=== PATIENT | male | born 1975 | race Caucasian/White ===

== ENCOUNTER 2017-06-12 23:03 | Emergency (ER) | payer MEDICAID, OTHER ==
--- NOTE | 2017-06-12 23:39 | EDM.PDOC ---
ED HPI GENERAL MEDICAL PROBLEM - General Chief Complaint: Respiratory Problem Stated Complaint: FLU SYMPTOMS Time Seen by Provider: 06/12/17 23:38 - History of Present Illness INITIAL COMMENTS - FREE TEXT/NARRATIVE: HISTORY AND PHYSICAL: History of present illness: Patient is 41-year-old male presents concern of cough chills body aches 1 day he denies shortness breath or chest pain denies abdominal pain Review of systems: As per history of present illness and below otherwise all systems reviewed and negative. Past medical history: As per history of present illness and as reviewed below otherwise noncontributory. Surgical history: As per history of present illness and as reviewed below otherwise noncontributory. Social history: No reported history of drug or alcohol abuse. Family history: As per history of present illness and as reviewed below otherwise noncontributory. Physical exam: HEENT: Atraumatic, normocephalic, pupils reactive, negative for conjunctival pallor or scleral icterus, mucous membranes moist, throat clear, neck supple, nontender, trachea midline. Lungs: Clear to auscultation, breath sounds equal bilaterally, chest nontender. Heart: S1S2, regular, negative for clicks, rubs, or JVD. Abdomen: Soft, nondistended, nontender. Negative for masses or hepatosplenomegaly. Negative for costovertebral tenderness. Pelvis: Stable nontender. Genitourinary: Deferred. Rectal: Deferred. Extremities: Atraumatic, negative for cords or calf pain. Neurovascular unremarkable. Neuro: Awake, alert, oriented. Cranial nerves II through XII unremarkable. Cerebellum unremarkable. Motor and sensory unremarkable throughout. Exam nonfocal. Diagnostics: Influenza screen Therapeutics: None Impression: #1 tracheobronchitis #2 rule out viral syndrome Definitive disposition and diagnosis as appropriate pending reevaluation and review of above. headache Pain Score (Numeric/FACES): 5 - Related Data Allergies Allergy/AdvReac Type Severity Reaction Status Date / Time No Known Allergies Allergy Verified 06/12/17 23:17 Home Meds: Home Meds . [No Known Home Meds] 06/12/17 [History] Past Medical History HEENT History: Reports: None Cardiovascular History: Reports: None Respiratory History: Reports: None Gastrointestinal History: Reports: None Genitourinary History: Reports: None Musculoskeletal History: Reports: None Neurological History: Reports: None Psychiatric History: Reports: None Endocrine/Metabolic History: Reports: None Hematologic History: Reports: None Immunologic History: Reports: None Oncologic (Cancer) History: Reports: None Dermatologic History: Reports: None - Infectious Disease History Infectious Disease History: Reports: None - Past Surgical History Musculoskeletal Surgical History: Reports: Amputation Social & Family History - Family History Family Medical History: Noncontributory - Tobacco Use Smoking Status *Q: Former Smoker Used Tobacco, but Quit: No - Caffeine Use Caffeine Use: Reports: Soda - Recreational Drug Use Recreational Drug Use: No ED ROS GENERAL - Review of Systems Review Of Systems: ROS reveals no pertinent complaints other than HPI. ED EXAM, GENERAL - Physical Exam Exam: See Below (See dictation) Course - Vital Signs Last Recorded V/S: Last Vital Signs Temp 36.1 C 06/12/17 23:17 Pulse 68 06/12/17 23:17 Resp 18 06/12/17 23:17 BP 135/77 06/12/17 23:17 Pulse Ox 98 06/12/17 23:17 - Orders/Labs/Meds Orders: Active Orders 24 hr Category Date Time Status STREP SCRN A RAPID W CULT CONF [RM] Stat Lab 06/12/17 23:29 Ordered Departure - Departure Time of Disposition: 23:41 Disposition: Home, Self-Care 01 Condition: Good Clinical Impression: Tracheobronchitis - Discharge Information Referrals: PCP,None [Primary Care Provider] - Forms: ED Department Discharge Additional Instructions: The following information is given to patients seen in the emergency department who are being discharged to home. This information is to outline your options for follow-up care. We provide all patients seen in our emergency department with a follow-up referral. The need for follow-up, as well as the timing and circumstances, are variable depending upon the specifics of your emergency department visit. If you don't have a primary care physician on staff, we will provide you with a referral. We always advise you to contact your personal physician following an emergency department visit to inform them of the circumstance of the visit and for follow-up with them and/or the need for any referrals to a consulting specialist. The emergency department will also refer you to a specialist when appropriate. This referral assures that you have the opportunity for followup care with a specialist. All of these measure are taken in an effort to provide you with optimal care, which includes your followup. Under all circumstances we always encourage you to contact your private physician who remains a resource for coordinating your care. When calling for followup care, please make the office aware that this follow-up is from your recent emergency room visit. If for any reason you are refused follow-up, please contact the [facility] emergency department at and asked to speak to the emergency department charge nurse. Augmentin and albuterol as prescribed follow-up private medical doctor as needed as discussed return as needed as discussed - My Orders Last 24 Hours: My Active Orders 06/12/17 23:29 STREP SCRN A RAPID W CULT CONF [RM] Stat - Assessment/Plan Last 24 Hours: My Active Orders 06/12/17 23:29 STREP SCRN A RAPID W CULT CONF [RM] Stat
== END 2017-06-13 00:07 | disposition home or self-care (01) ==
LOC: MW.ED 23:03
DX: J40 Bronchitis, not specified as acute or chronic (principal); Z87.891 Personal history of nicotine dependence
CPT/HCPCS: 87804; 87880; 99283

== ENCOUNTER 2018-11-02 20:35 | Emergency (ER) | payer MEDICAID ==
[2018-11-02] MEDS ORDERED: Sodium Chloride 0.9% 10 ML Syringe IV ONE (20:36)
[2018-11-02] MEDS ORDERED: Nitroglycerin 0.4 MG Tab.SL SL SCH (20:45)
[2018-11-02] MEDS ORDERED: Aspirin 81 MG Tab.Chew ONE (20:46)
[2018-11-02] MEDS ORDERED: Morphine 2 MG/ML Syringe IVPUSH ONE (20:48)
[2018-11-02] MEDS ORDERED: LORazepam 2 MG/ML SDV IVPUSH ONE (20:48)
[2018-11-02] MEDS ORDERED: Morphine 2 MG/ML Syringe ONE (20:48)
[2018-11-02] MEDS ORDERED: LORazepam 2 MG/ML SDV ONE (20:49)
[2018-11-02] MEDS ORDERED: Succinylcholine 200 MG/10 ML MDV IV ONE (20:54)
[2018-11-02] MEDS ORDERED: Aspirin 81 MG Tab.Chew PO ONE (21:03)
--- NOTE | 2018-11-02 21:12 | EDM.PDOC ---
ED HPI GENERAL MEDICAL PROBLEM - General Chief Complaint: Chest Pain Stated Complaint: COLD SWEAT Time Seen by Provider: 11/02/18 20:37 - History of Present Illness INITIAL COMMENTS - FREE TEXT/NARRATIVE: HISTORY AND PHYSICAL: History of present illness: Patient 43-year-old white male reports no past medical history patient and deny drug or alcohol abuse he comes in diaphoretic pale complaining of crushing chest pain in his becoming agitated quickly in his ER course was difficult to assess patient due to this agitation we did ultimately obtain an EKG that did not show any acute ST-T changes patient continued to become more agitated and altered and was intubated via rapid sequence intubation by myself he remained hemodynamically stable orogastric tube Nelson catheter was placed repeat EKG is pending as is chest x-ray Review of systems: As per history of present illness and below otherwise all systems reviewed and negative. Past medical history: As per history of present illness and as reviewed below otherwise noncontributory. Surgical history: As per history of present illness and as reviewed below otherwise noncontributory. Social history: No reported history of drug or alcohol abuse. Family history: As per history of present illness and as reviewed below otherwise noncontributory. Physical exam: HEENT: Atraumatic, normocephalic, pupils reactive, negative for conjunctival pallor or scleral icterus, mucous membranes moist, throat clear, neck supple, nontender, trachea midline. Patient appears pale and diaphoretic Lungs: Clear to auscultation, breath sounds equal bilaterally, chest nontender. Heart: S1S2, regular, negative for clicks, rubs, or JVD. Abdomen: Soft, nondistended, nontender. Negative for masses or hepatosplenomegaly. Negative for costovertebral tenderness. Pelvis: Stable nontender. Genitourinary: Deferred. Rectal: Deferred. Extremities: Atraumatic, negative for cords or calf pain. Neurovascular unremarkable. Neuro: Somnolent agitated moving all extremities not following commands consistently limited but grossly nonfocal exam Diagnostics: CBC CMP troponin PT/INR chest x-ray EKG UA urine drug screen EtOH ABG Therapeutics: Patient intubated with an 8-0 ET tube by myself via rapid sequence intubation color change entitle CO2 status post intubation verify placement OG tube Nelson catheter propofol drip Impression: #1 chest pain #2 altered mental status Definitive disposition and diagnosis as appropriate pending reevaluation and review of above. chest Pain Score (Numeric/FACES): 6 - Related Data Allergies Allergy/AdvReac Type Severity Reaction Status Date / Time No Known Allergies Allergy Verified 11/02/18 21:02 Home Meds: Home Meds . [No Known Home Meds] 06/12/17 [History] Past Medical History HEENT History: Reports: None Cardiovascular History: Reports: None Respiratory History: Reports: None Gastrointestinal History: Reports: None Genitourinary History: Reports: None Musculoskeletal History: Reports: None Neurological History: Reports: None Psychiatric History: Reports: None Endocrine/Metabolic History: Reports: None Hematologic History: Reports: None Immunologic History: Reports: None Oncologic (Cancer) History: Reports: None Dermatologic History: Reports: None - Infectious Disease History Infectious Disease History: Reports: None - Past Surgical History Musculoskeletal Surgical History: Reports: Amputation Social & Family History - Family History Family Medical History: Noncontributory - Tobacco Use Smoking Status *Q: Current Every Day Smoker Years of Tobacco use: 20 Packs/Tins Daily: 1 - Caffeine Use Caffeine Use: Reports: Soda - Recreational Drug Use Recreational Drug Use: No ED ROS GENERAL - Review of Systems Review Of Systems: ROS reveals no pertinent complaints other than HPI. ED EXAM, GENERAL - Physical Exam Exam: See Below (See dictation) Course - Vital Signs Last Recorded V/S: Last Vital Signs Temp 35.5 C 11/02/18 20:35 Pulse 98 11/02/18 20:35 Resp 24 H 11/02/18 20:35 BP 129/70 11/02/18 20:35 Pulse Ox 86 L 11/02/18 20:35 - Orders/Labs/Meds Orders: Active Orders 24 hr Category Date Time Status EKG Documentation Completion [RC] STAT Care 11/02/18 20:43 Active Chest 1V Frontal [CR] Stat Exams 11/02/18 20:44 Ordered COMPREHENSIVE METABOLIC PN,CMP [CHEM] Stat Lab 11/02/18 20:40 Received TROPONIN I [CHEM] Stat Lab 11/02/18 20:40 Received Nitroglycerin [Nitrostat] Med 11/02/18 20:45 Active 0.4 mg SL Q5M Medication Orders Nitroglycerin (Nitrostat) 0.4 mg SL Q5M EL Labs: Laboratory Tests 11/02/18 11/02/18 Range/Units 20:40 20:40 WBC 12.97 H (4.0-11.0) K/uL RBC 5.16 (4.50-5.90) M/uL Hgb 15.2 (13.0-17.0) g/dL Hct 43.9 (38.0-50.0) % MCV 85.1 (80.0-98.0) fL MCH 29.5 (27.0-32.0) pg MCHC 34.6 (31.0-37.0) g/dL RDW Std Deviation 40.9 (28.0-62.0) fl RDW Coeff of Ita 13 (11.0-15.0) % Plt Count 361 (150-400) K/uL MPV 9.80 (7.40-12.00) fL Neut % (Auto) 59.4 (48.0-80.0) % Lymph % (Auto) 31.1 (16.0-40.0) % Griggs % (Auto) 7.0 (0.0-15.0) % Eos % (Auto) 2.0 (0.0-7.0) % Baso % (Auto) 0.5 (0.0-1.5) % Neut # (Auto) 7.7 H (1.4-5.7) K/uL Lymph # (Auto) 4.0 H (0.6-2.4) K/uL Griggs # (Auto) 0.9 H (0.0-0.8) K/uL Eos # (Auto) 0.3 (0.0-0.7) K/uL Baso # (Auto) 0.1 (0.0-0.1) K/uL Nucleated RBC % 0.0 /100WBC Nucleated RBCs # 0 K/uL INR 0.95 Meds: Medications Generic Name Dose Route Start Last Admin Trade Name Freq PRN Reason Stop Dose Admin Nitroglycerin 0.4 mg 11/02/18 20:45 Nitrostat SL Q5M [facility] Discontinued Medications Generic Name Dose Route Start Last Admin Trade Name Freq PRN Reason Stop Dose Admin Aspirin Confirm 11/02/18 20:46 Aspirin Administered 11/02/18 20:47 Dose 324 mg .ROUTE .STK-MED ONE Aspirin 324 mg 11/02/18 21:03 Aspirin PO 11/02/18 21:04 ONETIME ONE Propofol Confirm 11/02/18 20:57 Diprivan 100 Ml Administered 11/02/18 20:58 Dose 100 mls @ as directed .ROUTE .STK-MED ONE Lorazepam 1 mg 11/02/18 20:48 Ativan IVPUSH 11/02/18 20:49 ONETIME ONE Lorazepam Confirm 11/02/18 20:49 Ativan Administered 11/02/18 20:50 Dose 2 mg .ROUTE .STK-MED ONE Morphine Sulfate 2 mg 11/02/18 20:48 Morphine IVPUSH 11/02/18 20:49 ONETIME ONE Morphine Sulfate Confirm 11/02/18 20:48 Morphine Administered 11/02/18 20:49 Dose 2 mg .ROUTE .STK-MED ONE Departure - Departure Time of Disposition: 21:11 Disposition: DC/Tfer to Acute Hospital 02 Condition: Serious Clinical Impression: Chest pain, Altered mental status - Discharge Information Referrals: PCP,None [Primary Care Provider] - - My Orders Last 24 Hours: My Active Orders 11/02/18 20:40 COMPREHENSIVE METABOLIC PN,CMP [CHEM] Stat TROPONIN I [CHEM] Stat 11/02/18 20:43 EKG Documentation Completion [RC] STAT 11/02/18 20:44 Chest 1V Frontal [CR] Stat 11/02/18 20:45 Nitroglycerin [Nitrostat] 0.4 mg SL Q5M - Assessment/Plan Last 24 Hours: My Active Orders 11/02/18 20:40 COMPREHENSIVE METABOLIC PN,CMP [CHEM] Stat TROPONIN I [CHEM] Stat 11/02/18 20:43 EKG Documentation Completion [RC] STAT 11/02/18 20:44 Chest 1V Frontal [CR] Stat 11/02/18 20:45 Nitroglycerin [Nitrostat] 0.4 mg SL Q5M
--- NOTE | 2018-11-02 21:25 | CR ---
TECHNIQUE: Portable AP chest. INDICATION: Post intubation. FINDINGS: Endotracheal tube tip 6 cm above the chacho. NG tube tip below the diaphragm. Lungs clear. Heart size and pulmonary vascularity normal. No pneumothorax. Dictated by Lambert Garcia MD @ 11/02/2018 9:23:11 PM Dictated by: Lambert Garcia MD @ 11/02/2018 21:23:24 (Electronically Signed)
[2018-11-02 21:39] LABS: CHLORIDE,CL 104 mmol/L (98-107); SODIUM,NA 142 mmol/L (136-148)
[2018-11-02] MEDS ORDERED: Rocuronium 50 MG/5 ML Vial IVPUSH ONE (22:22)
[2018-11-02] MEDS ORDERED: Etomidate 2 MG/ML 20 ML SDV IVPUSH ONE (22:22)
[2018-11-02] MEDS ORDERED: Sodium Chloride 0.9% 1,000 ML IV ONE (22:25)
== END 2018-11-02 21:45 ==
LOC: MW.ED 20:35
DX: R41.82 Altered mental status, unspecified (principal); R07.9 Chest pain, unspecified; F17.210 Nicotine dependence, cigarettes, uncomplicated
CPT/HCPCS: 31500; 36415; 51702; 71045; 80053; 80305; 81001; 82553; 84484; 85025; 85610; 87086; 93005; 96365; 96375; 99291; A9270; G0480; J0330; J2060; J2270; J2704; J3490; J7040; 99285

== ENCOUNTER 2024-02-19 00:31 | Emergency (ER) | payer SELFPAY ==
[2024-02-19 01:00] LABS: BASOPHILS ABSOLUTE AUTO 0.05 K/uL (0.00-0.20); BASOPHILS PERCENT AUTO 0.4 % (0.0-1.0); EOSINOPHILS ABSOLUTE AUTO 0.12 K/uL (0.00-0.45); HEMATOCRIT 43.5 % (42.0-52.0); IMMATURE GRAN ABSOLUTE AUTO 0.03 K/uL (0.00-0.05); IMMATURE GRAN PERCENT AUTO 0.3 % (0.0-0.4); LYMPHOCYTES ABSOLUTE AUTO 2.82 K/uL (1.00-4.80); LYMPHOCYTES PERCENT AUTO 24.4 % (24.0-44.0); MEAN CORPUSCULAR HEMOGLOBIN 28.9 pg (28.0-32.0); MEAN CORPUSCULAR HGB CONC 34.5 g/dL (32.0-36.0); MEAN CORPUSCULAR VOLUME 83.8 fL (83.0-99.0); MEAN PLATELET VOLUME 9.1 fL (9.4-12.4); MONOCYTES ABSOLUTE AUTO 0.78 K/uL (0.00-0.80); MONOCYTES PERCENT AUTO 6.8 % (0.0-8.0); NEUTROPHILS ABSOLUTE AUTO 7.75 K/uL (1.80-7.70); NEUTROPHILS PERCENT AUTO 67.1 % (41.0-71.0); PLATELET COUNT,PLT 347 K/uL (150-400); RED BLOOD CELL COUNT 5.19 M/uL (4.52-5.90); WHITE BLOOD CELL COUNT,WBC 11.55 K/uL (3.9-11.3)
[2024-02-19] MEDS: Ondansetron 4 MG/2 ML SDV IVPUSH ONE (01:00)
[2024-02-19] MEDS: Sodium Chloride 0.9% 1,000 ML IV ONE (01:00)
[2024-02-19 01:05] LABS: BLOOD UREA NITROGEN,BUN 17 mg/dL (7.0-18.0); CALCIUM 9.1 mg/dL (8.5-10.1); CARBON DIOXIDE,CO2 30.1 mmol/L (21.0-32.0); CHLORIDE,CL 102 mmol/L (98-107); CREATININE 1.1 mg/dL (0.8-1.3); GLUCOSE RANDOM 117 mg/dL (74-106); POTASSIUM,K 3.4 mmol/L (3.5-5.1); SODIUM,NA 140 mmol/L (136-148)
[2024-02-19 01:09] LABS: ESTIMATED GFR 82 mL/min (>60)
== END 2024-02-19 02:29 | disposition home or self-care (01) ==
LOC: MW.ED 00:31
DX: R20.0 Anesthesia of skin (principal); Z75.8 Other problems related to medical facilities and other health care
CPT/HCPCS: 36415; 80048; 84484; 85025; 93005; 96361; 96374; 99284; J2405; J7030; 93010; 99283

== ENCOUNTER 2024-06-22 16:22 | Emergency (ER) | payer MEDICAID | END 2024-06-22 16:54 | disposition left against medical advice (07) | LOC: MW.ED 16:22 | DX: Z53.21 Procedure and treatment not carried out due to patient leaving prior to being seen by health care provider (principal) ==